=== PATIENT | female | born 1995 | race Caucasian/White ===

== ENCOUNTER → 2022-10-28 17:27 | Outpatient (ROUT) | payer OTHER, SELFPAY | PROVIDERS: Visit Provider Nurse Practitioner Obstetrics & Gynecology | DX: Z34.90 Encounter for supervision of normal pregnancy, unspecified, unspecified trimester (principal); Z3A.31 31 weeks gestation of pregnancy | CPT/HCPCS: 86850; 86900; 86901 ==

== ENCOUNTER 2023-01-03 06:59 | Inpatient (IN) | payer OTHER, SELFPAY ==
--- NOTE | 2023-01-03 07:45 | P.HPOB_ITS ---
OB HPI Date/Time Date of admission: 01/03/23 Date Patient Seen: 01/03/23 Time Patient Seen: 07:20 History of Present Condition Chief complaint: induction : 1 Para: 0 Estimated Date of Delivery: 12/27/22 Estimated Gestational Age (weeks): 41 Narrative: TRUDY CONNOLLY is a 27 year old female @ 41wks 0days by LMP here for post dates induction of labor. Had a Shanks balloon placed last last night in clinic at 5:30pm. [place] mild cramping overnight and was able to get some sleep. +FM. No vaginal bleeding, leaking of fluid, headache, vision changes or RUQ pain. Initial PN care with at [facility] was complicated by mild anemia and mild ventriculomegaly for which she was seeing MFM for serial evaluations. Transferred into [facility] care at 31 weeks with resolution of ventriculomegaly resolved at 11/21/22 MFM consultation. Planning a low intervention . Accompanied by her , Flo, and sister. Janette to arrive with active labor. Indications Indication for induction OB: post dates History of Present care: good care, initiated at week # (11), number of visits (15) and pounds weight gain (40) Dating criteria: based on LMP only Ultrasounds: abnormal US findings (ventriculomegaly, resolved) Obstetrical complications: none Medical complications: none Preadmission Labs Blood type: A (+) positive -: Antibody screen: negative, GBS status: negative, HBsAG: negative, HIV: negative and RPR/VDLR: negative -: Chlamydia screen: not detected and Gonorrhea screen: not detected -: Rubella: immune and Varicella: immune HCT: 32.1 HCAB: negative Quad screen: Normal 1 hr GTT: 118 Evaluation Evaluation Baseline heart rate: 130 Variability: Moderate (11-25) monitor accelerations: Present Monitor Decelerations: Absent Contraction Frequency (minutes): 8 Uterine Contraction Intensity: Mild Category of Tracing: Reactive Status: Category l Dilation (cm): 5 Effacement (%): 80 Dilation: >/=5 cm Effacement: >/=80% station: -2 Position of cervix: posterior Consistency: soft Cutler score: 9 Comments: Shanks balloon removed from vagina [facility] Social History (Updated 01/03/23 @ 08:24 by LESTER Clancy marital status: household members: spouse lives independently: Yes Meds Home Medications and Allergies Home Medications Medication Instructions Recorded Confirmed Type vits no.129-ferrous fum 1 tab PO DAILY 01/03/23 01/03/23 History 27 mg iron-folic acid 800 mcg tablet ( One Daily) Allergies Allergy/AdvReac Type Severity Reaction Status Date / Time No Known Drug Allergies Allergy Unverified 01/03/23 08:25 Review of Systems Review of Systems ROS: Yes All systems reviewed with the patient and are negative except as otherwise documented OB Exam Vital signs Blood Pressure: 134/80 Pulse Rate: 89 Temperature: 97.3 F Resp Effort & Inspection: normal respiratory effort and able to speak in complete sentences Auscultation: clear to auscultation bilaterally Cardio Rate: regular rate Rhythm: regular rhythm Heart Sounds: S1 normal and S2 normal Presentation: vertex Other: Tight pelvic floor Objective Labs 01/03/23 07:50 01/03/23 07:50 Assessment and Plan Assessment and Plan Assessment and Plan narrative: A: Late term nullipara IOL for post dates, favorable GBS prophylaxis NOT indicated Cat I FHR P: Admit, routine orders. Pitocin, per protocol. Encourage rest during pre- labor hours. Labor support PRN. Reassess in 4 hours. Repeat CE after 2 hours of strong contractions.
[2023-01-03 08:12] LABS: Add Manual Diff / Slide Review NO; Basophils Absolute Auto 0 /uL (0-100); Basophils Percent Auto 0.4 % (0-2); Eosinophils Absolute Auto 0 /uL (0-450); Eosinophils Percent Auto 0.5 % (2-4); Hematocrit 30.3 % (36-46); Hemoglobin 10.5 g/dL (12.0-16.0); Lymphocytes Absolute Auto 1500 /uL (1100-4500); Lymphocytes Percent Auto 17.4 % (25-40); Mean Corpuscular HGB Conc 34.8 % (30-36); Mean Corpuscular Volume 89.3 fL (80-100); Monocytes Absolute Auto 700 /uL (0-900); Monocytes Percent Auto 8.7 % (3-14); Neutrophils Absolute Auto 6300 /uL (1500-7000); Platelet Count 197 X10^3/uL (150-400); Red Blood Cell Count 3.39 X10^6/uL (4.0-5.2); White Blood Cell Count 8.6 X10^3/uL (4.5-11.0)
[2023-01-03] MEDS: LACTATED RINGERS 1,000 ML 100 ML IV ×2 (08:14→17:48)
[2023-01-03] MEDS: OXYTOCIN PREMIX 30 UNIT/500 ML PLAST..BAG IV (08:14)
[2023-01-03 08:26] LABS: Aspartate Aminotransferase 25 IU/L (14-36); BUN Creatinine Ratio 19.6 (6-22); Blood Urea Nitrogen 10 mg/dL (7-17); Estimated Glomerular Filt Rate > 60 mL/min (>60); Uric Acid 5.8 mg/dL (2.5-6.2)
[2023-01-03 08:28] VITALS: BP 134/80; PULSE 89; TEMP 36.3
[2023-01-03 09:56] VITALS: BP 134/80
--- NOTE | 2023-01-03 14:21 | PM.OBPNLAB ---
Date/Time Date Patient Seen: 01/03/23 Time Patient Seen: 14:22 Pain Control Pain control: tolerating well Comments: Tere has been up on the ball an ambulating in her room. Feeling more cramping in her low pelvis and back, but nothing compared to the intensity of contractions with the Shanks balloon in last night. Eager to get things going and consents to AROM. and sister remain supportive at her side. Pelvic Exam Dilation (cm): 5 Effacement (%): 80 station: -2 Amniotic membrane status: Ruptured (AROM, clear) Comments: bloody show noted Contractions Monitor mode: External Pitocin rate (mU/min): 16 Contraction frequency (min): 2 Contraction duration (min): 1 Contraction pattern: Regular Contraction intensity: Mild Status status: Category ll Heart Rate Baseline: 140 Monitor Accelerations: Present Monitor Decelerations: Late (rare) and Variable (rare) Monitor Variability: Moderate Assessment and Plan Assessment: induction ongoing Plan: continuous present management Comments: Decrease pitocin to 10mu/min with AROM. Continue pitocin titration to adequate contraction pattern. Labor support PRN. Reassess in 4 hours or sooner, PRN.
[2023-01-03] MEDS: ONDANSETRON 4 MG/2 ML INJ IV (17:36)
--- NOTE | 2023-01-03 18:23 | PM.OBPNLAB ---
Date/Time Date Patient Seen: 01/03/23 Time Patient Seen: 18:00 Pain Control Pain control: tolerating well Comments: Tere is in bed on her right side with a peanut ball in place. Has been up on the ball and working hard with her labor. Contractions became strong around 1500. Pitocin was steadily decreased as labor intensified and then shut off at 1744. Tere is now moaning through strong contraction every 2-3 minutes. Using a TENS unit with some relief. Continues to leak clear fluid with some bloody show. , black top paver operator and sister are providing continuous labor support. VS: BP 123/64, HR 88bpm, T 35.7C Temporal Pelvic Exam Dilation (cm): 5 Effacement (%): 80 station: -2 Amniotic membrane status: Ruptured (AROM, clear) Comments: Deferred as exams are painful for her, she is showing signs of labor progression/active labor, and did not give consent for an exam at this time. Contractions Monitor mode: External Pitocin rate (mU/min): 0 Contraction frequency (min): 2 Contraction duration (min): 1 Contraction pattern: Regular Contraction intensity: Mild Status status: Category ll Heart Rate Baseline: 125 Monitor Accelerations: Present Monitor Decelerations: Variable (occasional, not recurrent) Monitor Variability: Moderate Assessment and Plan Assessment: active labor Plan: continuous present management Comments: Continue expectant management of labor. May switch to intermittent auscultation. Encourage CE in the next 2-3 hours. Encourage movement and comfort measures. Reassess in 2-3 hours or sooner, PRN.
--- NOTE | 2023-01-04 01:56 | PM.OBPRVD ---
Events: Labor Induction and Meconium Stained Fluid Labor & Delivery Delivery date: 01/04/23 Intrapartal Events: None Cervical ripening method: per Shanks bulb protocol Induction method: per pitocin protocol Delivery augmentation: rupture of membranes Delivery monitor: external FHT Route of delivery: L&D Laceration Description: Labial (right) Delivery repair: chromic (4.0) Quantitative Blood Loss: 600 Narrative: Tere labored well without anesthesia or additional augmentation. Pitocin was utilized in early labor (max dose 16mu/min), then turned off 7 hours prior to the . FHR remained reassuring by intermittent auscultation throughout remainder of first stage and throughout second stage of labor. eTre began to feel a spontaneous urge to push and was presumed to be complete at 2347. NSVB of a viable baby boy in TAMAR position. There was a single loose nuchal cord and a compound left/posterior hand which were both manually reduced. Copious thick meconium stained fluid was noted after delivery of the shoulders. CNM and FOB with hands on at the . The was placed on maternal abdomen by FOB. 30 units of pitocin in 500mL LR was started at 250mL/hr for AMTSL. With drying, stimulation and skin to skin Apgars were 8 and 9. After cessation of pulsation, the cord was double clamped by CNM and cut by FOB. Cord blood hold sample was collected. Gentle cord traction and a single maternal push led to spontaneous, Schultze delivery of an apparently intatc placenta, membranes 3VC and large clots. Fundus was immediately firm and bleeding minimal. Inspection revealed a 2cm R labia laceration which was repaired with 4.0 chromic in the usual fashion under 1% lidocaine local. QBL 600mL. Both mother and baby stable and skin to skin as I left the room. Baby 1: gender: Male Presentation: vertex Position: Left Occiput Anterior Placenta delivery description: Spontaneous Cord Vessel Description: 3 Vessels, Nuchal Cord and Loose score (1 min): 8 score (5 min): 9 weight: 3.855 kg Plan for aftercare: Routine care
[2023-01-04] MEDS: ACETAMINOPHEN 325 MG TABLET 650 MG PO ×3 (02:25→14:40)
[2023-01-04] MEDS: LANOLIN OINT 7 GM 1 APPLIC TOP (02:26)
[2023-01-04] MEDS: DERMOPLAST SPRAY 20% 60 ML 1 SPRAY TOP (02:27)
[2023-01-04] MEDS: KETOROLAC 30 MG/ML VIAL IV (02:27)
[2023-01-04] MEDS: IBUPROFEN 600 MG TABLET PO ×2 (08:35→14:40)
[2023-01-04 12:14] LABS: Hematocrit 27.5 % (36-46); Hemoglobin 9.5 g/dL (12.0-16.0)
--- NOTE | 2023-01-04 16:51 | P.DS_ITS ---
Discharge Providers Provider Date of admission: 01/03/23 06:59 Discharge Date: 01/04/23 Primary care physician: JOSE Owens Consults: 01/05/23 01:54 Consult to Design Center Consultant Routine Comment: Discharge provider: Shu Gore CNM Summary Hospital Course Date Patient Seen: 01/04/23 Time Patient Seen: 16:52 Diagnoses: O70.0 Hospital Course: Day of delivery: Tere is stable s/p NSVB with a 1st degree right labial lacerations. She was mildly anemic upon arrival to the hospital with stable Hgb/Hct today, after the . She is voiding, ambulating and independently. Tolerating a general diet. Pain is well controlled with PO medication. Vaginal bleeding is light, without colts. is present and supportive. They are both eager for discharge to home tonight. Peripartum Data Infant Delivery Method: Natural Vaginal Laceration Description: Labial Episiotomy description: None Procedures: O70.0, O90.81 complications: none 1: Gender: Male Disposition of : home Discharge Diagnosis (1) First degree perineal laceration during delivery: Status: Acute Status at Discharge Cognitive/behavioral status at discharge: oriented and calm Functional status at discharge: independent ambulation Overall status at discharge: patient is progressing back to baseline Time Spent with Patient Time attestation: Total time spent providing and/or coordinating discharge services: Objective Labs 01/04/23 12:02 01/03/23 07:50 Labs: Laboratory Results - last 24 hr 01/04/23 12:02 Hgb 9.5 L Hct 27.5 L Exam Vital Signs (past 8 hours): BP 131/63, HR 95bpm, RR 16/min, T 98.9F Temporal, SpO2 97% Other: Fundus firm @ u-1, lochia small Discharge Plan Discharge Plan Patient Disposition: Home Discharge orders & Medications Prescriptions: New ibuprofen 600 mg Tablet 600 mg PO Q6HR PRN (Reason: Pain, Mild (1-3)) 14 Days Qty: 60 0RF Continued One Daily 27 mg iron- 800 mcg tablet 1 tab PO DAILY Follow up/Referrals: Shu Gore CNM [[facility] Coordinator Of Genetic Services] - (Follow-up by phone 01/17/2023 @ 1130 Follow-up in office 02/14/2023 @ 1115) Diet/Activity/Treatments Diet: Regular Activity: pelvic rest x 6 weeks, bed rest x 2 weeks Skin/Wound/Dressing Care Report to your healthcare provider any signs of infection, such as:: chills, fever, increased pain, unusual drainage and unusual redness Visit Report/Discharge Packet Stand Alone Forms: Patient Portal/API, Stroke Signs & Symptoms
== END 2023-01-04 20:00 | disposition home or self-care (01) | DRG 807 ==
PROVIDERS: Nurse Practitioner Obstetrics & Gynecology; Admitting Provider Advanced Practice Midwife; Referring Provider Advanced Practice Midwife; Visit Provider Advanced Practice Midwife
DX: O48.0 Post-term pregnancy (principal); Z37.0 Single live birth; O70.0 First degree perineal laceration during delivery; Z3A.41 41 weeks gestation of pregnancy
CPT/HCPCS: 36415; 59050; 84450; 84550; 85014; 85018; 85025; 86850; 86900; 86901; G0379; J1885; J2405; J2590

== ENCOUNTER → 2024-07-11 12:34 | Outpatient (CLI) | payer OTHER, SELFPAY ==
--- NOTE | 2024-07-11 12:37 | DI.US.S_ITS ---
PROCEDURE: US OB >= 14 WEEKS FETUS INDICATIONS: ANATOMY SCAN OUTSIDE/PRIOR DATING DATA: Last menstrual period (LMP): 02/13/24. LMP-based estimated date of delivery (VIKASH): 11/26/24. First dating scan (date and location): 04/12/24, reportedly an office study performed by . Estimated date of delivery (VIKASH) from first dating scan: 11/26/24. TECHNIQUE: Real-time scanning was performed of the fetus, with image documentation and biometric measurements. Endovaginal scanning: Not needed COMPARISON: None. FINDINGS: General: A single living intrauterine gestation is present. Presentation: Vertex. Placenta: Placental position is anterior , without previa. Amniotic fluid index: 16.1 cm, normal range is 5-24 cm. Single deepest vertical pocket is 5.2 cm. heart rate: 150 beats per minute. Maternal cervical canal: 3.1 cm long. Normal lower limit is 2.5 cm. biometrics: Biparietal diameter: 5.3 cm, 22 weeks 0 days Head circumference: 19.1 cm, 21 weeks 3 days Abdominal circumference: 17.6 cm, 22 weeks 4 days Femur length: 3.6 cm, 21 weeks 3 days Clinically estimated gestational age: 20 weeks 2 days Composite gestational age from present scan: 21 weeks 6 days Estimated weight and percentile: 465 g, out of range above the 99th percentile. Anatomic survey: Neuro: Ventricles are non-dilated at less than 10 mm. Cisterna magna is normal at 3-11 mm. Cerebellum is normal in size and morphology. Nuchal skin fold: Normal at less than 6 mm between 14-21 weeks gestational age. Face: Nose and lips, facial profile are normal. Spine: No evidence for spina bifida. Heart: 4-chambered heart is present, with normal ventricular outflow tracts. Diaphragm: Diaphragm is intact. Stomach: Left-sided stomach is present. Kidneys: No hydronephrosis. Normal is less than 5 mm in 2nd trimester, less than 7 mm in 3rd trimester. Cord: 3-vessel cord has orthotopic insertion. Bladder: Normal in size. Extremities: All 4 extremities identified. IMPRESSION: Single living intrauterine gestation with normal survey of anatomy. Normal amniotic fluid volume. As noted above the reported 1st OB ultrasound was not performed by our [facility] certified sonography staff. The out of range greater than 99th percentile weight could represent true macrosomia but also might represent dating error during the single available prior OB ultrasound report. Continued close clinical follow-up is recommended. Please assess for risk factors of macrosomia. We strive to produce accurate, complete, and clear reports of imaging services. To assist us in improving patient care, this report was composed using standard report templates and voice recognition software. Therefore, it may contain abnormal punctuation, insertions and/or omissions. Occasional wrong-word or sound-alike substitutions may occur. Though we review the report and make efforts to correct it, we do recommend that the report be read carefully in proper context to recognize any text inaccuracies. Dictated by: Tono Em M.D. on 07/12/2024 at 14:32 Approved by: Tono Em M.D. on 07/12/2024 at 14:40
== END ==
PROVIDERS: PCP Nurse Practitioner Family; Referring Provider Advanced Practice Midwife; Visit Provider Advanced Practice Midwife
DX: Z34.92 Encounter for supervision of normal pregnancy, unspecified, second trimester (principal); Z3A.20 20 weeks gestation of pregnancy
CPT/HCPCS: 76811

== ENCOUNTER → 2024-08-16 13:42 | Outpatient (CLI) | payer OTHER, SELFPAY ==
--- NOTE | 2024-08-16 13:43 | DI.US.S_ITS ---
PROCEDURE: US OB FOLLOW UP INDICATIONS: MACROSOMIA OUTSIDE/PRIOR DATING DATA: Working VIKASH: 11/19/2024 TECHNIQUE: Real-time scanning was performed of the fetus, with image documentation and biometric measurements. Endovaginal scanning: Not performed COMPARISON: [facility], , OB >= 14 WEEKS FETUS, 07/11/2024, 13:04. FINDINGS: General: A single living intrauterine gestation is present. Presentation: Vertex. Placenta: Placental position is anterior , without previa. Amniotic fluid index: 14.5 cm, normal range is 5-24 cm. Single deepest vertical pocket is 5.5 cm. heart rate: 160 beats per minute. Maternal cervical canal: 4.0 cm long. Normal lower limit is 2.5 cm. biometrics: Biparietal diameter: 6.9 cm, 27 weeks 5 days Head circumference: 25.1 cm, 27 weeks 2 days Abdominal circumference: 23.5 cm, 27 weeks 6 days Femur length: 4.7 cm, 25 weeks 3 days Clinically estimated gestational age: 26 weeks 3 days Composite gestational age from present scan: 27 weeks 1 day Estimated weight and percentile: 1005 g, 60 percentile Other: Not applicable. IMPRESSION: Single living intrauterine at 26 weeks 3 days, VIKASH 11/19/2024. Estimated weight 1005 g, 68th percentile. We strive to produce accurate, complete, and clear reports of imaging services. To assist us in improving patient care, this report was composed using standard report templates and voice recognition software. Therefore, it may contain abnormal punctuation, insertions and/or omissions. Occasional wrong-word or sound-alike substitutions may occur. Though we review the report and make efforts to correct it, we do recommend that the report be read carefully in proper context to recognize any text inaccuracies. Dictated by: Allan Arias M.D. on 08/16/2024 at 21:01 Approved by: Allan Arias M.D. on 08/16/2024 at 21:03
== END ==
LOC: US 13:43
PROVIDERS: PCP Nurse Practitioner Family; Referring Provider Advanced Practice Midwife; Visit Provider Advanced Practice Midwife
DX: Z36.88 Encounter for antenatal screening for fetal macrosomia (principal); Z3A.26 26 weeks gestation of pregnancy
CPT/HCPCS: 76816

== ENCOUNTER 2024-11-23 04:11 | Inpatient (IN) | payer OTHER, SELFPAY ==
--- NOTE | 2024-11-23 04:23 | P.HPOB_ITS ---
OB HPI Date/Time Date of admission: 11/23/24 Date Patient Seen: 11/23/24 Time Patient Seen: 04:23 History of Present Condition Chief complaint: Labor : 2 Para: 1 Estimated Date of Delivery: 11/19/24 Estimated Gestational Age (weeks): 40w4d Narrative: Tere Fish is a 29 year old female at 40 w4d by LMP who presents for labor. Contractions started around 0100 and called the automotive upholsterer from the car at 0313 reporting contractions that reminded her of last time. Denies leaking of fluid, and vaginal bleeding. She had typical care by CNNe complicated only by macrosomia noted at anatomy ultrasound and ruled out at 27 week growth ultrasound. Tere is here with her , Flo, and her sister, Ruthy. Planning unmedicated . History of Present care: good care, initiated at week # (7), number of visits (14) and pounds weight gain (20) Dating criteria: based on LMP only Ultrasounds: normal 1st trimester US, normal mid trimester US and other (Growth at 27 weeks) Obstetrical complications: none Preadmission Labs Blood type: A (+) positive -: Antibody screen: negative, GBS status: negative, HBsAG: negative, HIV: negative and RPR/VDLR: negative -: Chlamydia screen: not detected and Gonorrhea screen: not detected -: Rubella: immune and Varicella: immune HCT: 34 HCAB: negative PAP: Normal 1 hr GTT: 91 Prior (ies) History: Hx # Term Pregnancies: 1 Hx # Pregnancies: 0 Number of Living Children: 0 Multiple births: 0 Spontaneous abortions: 0 Ectopic pregnancies: 0 Elective abortions: 0 Evaluation Evaluation Baseline heart rate: 150 Variability: Moderate (6-25) Monitor Decelerations: Absent Contraction Frequency (minutes): 3 (2-4) Uterine Contraction Intensity: Strong/Firm Status: Category l Dilation (cm): 5 Effacement (%): 90 Dilation: >/=5 cm Effacement: >/=80% station: 0 Position of cervix: mid Consistency: soft Cutler score: 11 PFSH Social History marital status: household members: spouse lives independently: Yes Smoking Status: Never smoker Meds Home Medications and Allergies Home Medications ?Medication ?Instructions ?Recorded ?Confirmed ?Type vits no.129-ferrous fum 1 tab PO DAILY 11/23/24 History 27 mg iron-folic acid 800 mcg tablet ( One Daily) Allergies Allergy/AdvReac Type Severity Reaction Status Date / Time No Known Drug Allergies Allergy Unverified 11/23/24 05:16 Review of Systems Review of Systems ROS: Yes All systems reviewed with the patient and are negative except as otherwise documented OB Exam Vital signs Blood Pressure: 133/79 Pulse Rate: 104 Respiratory Rate: 16 Temperature: 97.9 F Resp Effort & Inspection: normal respiratory effort and able to speak in complete sentences Auscultation: clear to auscultation bilaterally Cardio Rate: regular rate Rhythm: regular rhythm Presentation: vertex Estimated Weight (lbs): 8 Objective Labs 11/23/24 04:48 Assessment and Plan Assessment and Plan Assessment and Plan narrative: Assessment 29 year old FHR Cat 1 GBS neg Rh positive Active Labor Plan: Admit for labor and delivery Usual orders. Intermittent auscultation Anticipate NSVB. Time-Based Coding :: [TOTAL MINUTES] spent with patient and on the chart (including review of chart, obtaining history, exam, reviewing outside data, placing orders, documenting exam and treatment plan, and counseling patient) on [DATE].
[2024-11-23 04:35] VITALS: BP 133/79
[2024-11-23 05:03] VITALS: BP 133/79; PULSE 104; RESP 16; TEMP 36.6
[2024-11-23 05:05] LABS: Add Manual Diff / Slide Review NO; Hematocrit 34.7 % (36-46); Hemoglobin 11.8 g/dL (12.0-16.0); Lymphocytes Absolute Auto 1500 /uL (1100-4500); Mean Corpuscular HGB Conc 33.9 % (30-36); Mean Corpuscular Hemoglobin 30.0 PG (26-34); Mean Corpuscular Volume 88.5 fL (80-100); Platelet Count 223 X10^3/uL (150-400)
[2024-11-23] MEDS: OXYTOCIN 10 UNIT/ML VIAL IM (10:00)
[2024-11-23] MEDS: TRANEXAMIC ACID 1,000 MG in SODIUM CHLORIDE 0.9% 100 ML 600 MG IV (10:15)
--- NOTE | 2024-11-23 10:25 | P.PCNOB_ITS ---
Labor & Delivery Delivery date: 11/23/24 Delivery Time: 09:54 Intrapartal Events: None Cervical ripening method: none Induction method: none Delivery monitor: external FHT (IA) Route of delivery: L&D Laceration Description: None Quantitative Blood Loss: 463 Anesthesia Type: None Narrative: Labor progressed well. Tere felt the spontaneous urge to push at 0912 and pushed effectively for a 42 minute 2nd stage. FHR was reassuring by IA throughout 2nd stage. NSVB of baby boy in LOP position at 0954, shoulders delivered easily. Baby was caught by SNM and FOB and placed on maternal abdomen when Tere reached for him. Apgars 8,9. Pitocin 10 unit IM was given for AMTSL. When the cord stopped pulsing, SNM double clamped and the cord was cut by FOB. With gentle traction and maternal push, an intact Shultze placenta was delivered with large gush, QBL 463mL, then IV TXA was given for further bleeding prophylaxis. Fundus was immediately firm with scant bleeding. Cord blood collected for blood typing PRN. Perineum inspected and found to be intact. Mom and baby left skin to skin and stable; is being initiated. Tere and Flo are thrilled to meet second son, [place]. Shanell GARCIA CNM, IBCLC with [facility] [place] Baby 1: Infant gender: Male Presentation: vertex Position: Left Occiput Posterior Placenta delivery description: Spontaneous and Normal Configuration Cord Vessel Description: 3 Vessels score (1 min): 8 score (5 min): 9 weight: 4.098 kg Plan for aftercare: Routine care
[2024-11-23] MEDS: KETOROLAC 30 MG/ML VIAL IV (12:39)
[2024-11-23] MEDS: DERMOPLAST SPRAY 20% 60 ML 1 SPRAY TOP (12:39)
[2024-11-23] MEDS: IBUPROFEN 600 MG TABLET PO (18:43)
[2024-11-23] MEDS: LANOLIN OINT 7 GM 1 APPLIC TOP (18:44)
[2024-11-24] MEDS: IBUPROFEN 600 MG TABLET PO ×3 (00:16→12:13)
[2024-11-24] MEDS: ACETAMINOPHEN 325 MG TABLET 650 MG PO ×3 (00:17→12:14)
[2024-11-24 09:33] VITALS: BP 110/66; PULSE 104; RESP 16; TEMP 36.9
--- NOTE | 2024-11-24 10:25 | P.DS_ITS ---
Discharge Providers Provider Date of admission: 11/23/24 04:11 Discharge Date: 11/24/24 Primary care physician: JOSE Escamilla Consults: 11/23/24 04:21 Consult to Anesthesiology Urgent Comment: Consulting Provider: Anesthesiologist Reason for consultation: Epidural Has provider been notified: No 11/23/24 10:21 Consult to Asian Art Curator Routine Comment: Discharge provider: Shanell Flores CNM, ARNP Summary Hospital Course Date Patient Seen: 11/24/24 Time Patient Seen: 10:27 Diagnoses: O80 Hospital Course: Admitted in active labor, progressed to complete, pushed out 9 lb baby boy. Intact perineum. Peripartum Data Infant Delivery Method: Natural Vaginal Laceration Description: None 1: Gender: Male Disposition of : home Discharge Diagnosis (1) Breast feeding status of mother: Status: Acute (2) (normal spontaneous vaginal delivery): Status: Acute Status at Discharge Cognitive/behavioral status at discharge: oriented and calm Functional status at discharge: independent ambulation Overall status at discharge: patient is progressing back to baseline Time Spent with Patient Time attestation: Total time spent providing and/or coordinating discharge services: Time spent: Less than 30 minutes Specific discharge activities: discharge teaching Objective Labs 11/23/24 04:48 Exam Vital Signs (past 8 hours): - 11/24/24 09:33 Temperature 98.4 F Pulse Rate 104 H Respiratory Rate 16 Blood Pressure 110/66 Other: Fundus firm at U-1, midline. Lochia scant Perineum intact with minimal edema Discharge Plan Discharge Plan Patient Disposition: Home Discharge orders & Medications Prescriptions: Continued One Daily 27 mg iron- 800 mcg tablet 1 tab PO DAILY Follow up/Referrals: Agnes Woods ARNP [Primary Care Provider, Nursing] Shanell Flores CNM, ARNP [Advanced Technology Methodology Consultant, SUPERVISOR MICROFILM DUPLICATING UNIT] - 2 Weeks Referral Note: 2 and 6 week visits scheduled; see e-mail from [facility] Diet/Activity/Treatments Diet: Regular Diet comment: increase fiber and fluid Activity: low vaughan x 2 weeks Cold/Heat Therapy: as needed Skin/Wound/Dressing Care Skin care: usual care Report to your healthcare provider any signs of infection, such as:: chills, fever, increased pain, unusual drainage and unusual redness Visit Report/Discharge Packet Instructions: DI for Depression Stand Alone Forms: Discharge: Care, Patient Portal/API, Stroke Signs & Symptoms Discharge Data Primary Care Provider: Agnes Woods Attending Provider: Shanell Flores Admit Date/Time: 11/23/24 04:11
== END 2024-11-24 12:45 | disposition home or self-care (01) | DRG 807 ==
PROVIDERS: Admitting Provider Advanced Practice Midwife; PCP Nurse Practitioner Family; Referring Provider Advanced Practice Midwife; Visit Provider Advanced Practice Midwife
DX: O80 Encounter for full-term uncomplicated delivery (principal); Z37.0 Single live birth; Z3A.40 40 weeks gestation of pregnancy
CPT/HCPCS: 36415; 59050; 85025; 86850; 86900; 86901; G0378; G0379; J1885; J2590